=== PATIENT | male | born 1945 | race Caucasian/White ===

== ENCOUNTER 2019-07-24 04:49 | Emergency (ER) | payer MEDICARE ==
[~2019-07-24] VITALS: Ht 177.8 cm; Wt 78.0 kg
[~2019-07-24 04:49] MED LIST: COU4T PO; LEVO175T52 PO; LOP25T PO; PERI2TAB PO
[2019-07-24] MEDS ORDERED: cocaine 4% topical solution 4ml bottle MM ONE (05:00)
[2019-07-24 05:52] VITALS: BP 149/75
== END 2019-07-24 05:55 | disposition home or self-care (01) ==
LOC: ER 04:49
DX: R04.0 Epistaxis (principal); I48.91 Unspecified atrial fibrillation; I25.10 Atherosclerotic heart disease of native coronary artery without angina pectoris; I10 Essential (primary) hypertension; Z86.73 Personal history of transient ischemic attack (TIA), and cerebral infarction without residual deficits; Z95.1 Presence of aortocoronary bypass graft; Z98.890 Other specified postprocedural states; Z88.6 Allergy status to analgesic agent; Z79.01 Long term (current) use of anticoagulants; Z79.899 Other long term (current) drug therapy
CPT/HCPCS: 99283

== ENCOUNTER 2019-07-27 20:39 | Emergency (ER) | payer MEDICARE ==
[~2019-07-27] VITALS: Ht 177.8 cm; Wt 67.2 kg
[2019-07-27 20:42] VITALS: BP 163/118
--- NOTE | 2019-07-27 21:00 | NUR ---
nose clamp placed on pt
--- NOTE | 2019-07-27 21:01 | NUR ---
nose clamp off due to packing in pt's nose
[2019-07-27] MEDS ORDERED: oxymetazoline 15 ML nasal spray NS ONE (21:55)
[2019-07-27] MEDS ORDERED: HYDROcodone/acetaminophen 5mg/325mg tablet PO ONE (23:05)
[2019-07-27] MEDS ORDERED: HYDR-3965 PO (23:47)
== END 2019-07-27 23:54 | disposition home or self-care (01) ==
LOC: ER 20:39
DX: R04.0 Epistaxis (principal); I48.91 Unspecified atrial fibrillation; I25.10 Atherosclerotic heart disease of native coronary artery without angina pectoris; I10 Essential (primary) hypertension; Z86.73 Personal history of transient ischemic attack (TIA), and cerebral infarction without residual deficits; Z95.1 Presence of aortocoronary bypass graft; Z88.6 Allergy status to analgesic agent; Z79.01 Long term (current) use of anticoagulants; Z79.899 Other long term (current) drug therapy
CPT/HCPCS: 30901; 36415; 85610; 99284

== ENCOUNTER 2019-07-31 10:00 | Emergency (ER) | payer MEDICARE ==
[~2019-07-31] VITALS: Ht 177.8 cm; Wt 65.5 kg
[~2019-07-31 10:00] MED LIST changes: +HYDR-3965 PO
[2019-07-31 10:04] VITALS: BP 103/70
== END 2019-07-31 10:27 | disposition home or self-care (01) ==
LOC: ER 10:01
DX: Z48.00 Encounter for change or removal of nonsurgical wound dressing (principal); I48.91 Unspecified atrial fibrillation; I25.10 Atherosclerotic heart disease of native coronary artery without angina pectoris; I10 Essential (primary) hypertension; Z86.73 Personal history of transient ischemic attack (TIA), and cerebral infarction without residual deficits; Z95.1 Presence of aortocoronary bypass graft; Z98.890 Other specified postprocedural states; Z79.01 Long term (current) use of anticoagulants; Z79.899 Other long term (current) drug therapy
CPT/HCPCS: 99281